=== PATIENT | female | born 1955 | race Caucasian/White ===

== ENCOUNTER → 2019-05-30 10:51 | Outpatient (CLI) | payer MEDICARE, BC, SELFPAY ==
--- NOTE | 2019-05-30 10:59 | DI.MRI.S_ITS ---
PROCEDURE: MR LUMBAR SPINE WO CON INDICATIONS: LOWER BACK PAIN TECHNIQUE: Noncontrast sagittal T1 spin echo and T2 fast echo, sagittal STIR, axial T1 and T2 fast spin echo through the lumbar spine. In cases with scoliosis, additional coronal T2 fast spin echo may be performed. COMPARISON: None. FINDINGS: Image quality: Diagnostic. Spinal Cord: Conus medullaris terminates at the L1 level. Visualized cord demonstrates normal signal and size. Paraspinous Soft Tissues: No paravertebral masses. There appears to be aortic atherosclerosis without aneurysm. Bones: The vertebral body heights throughout the imaged thoracolumbar spine are well-maintained. There is no acute compression fracture. No suspicious osseous lesions or dislocations are evident. Bony alignment is within normal limits without spondylolisthesis. There is prominent marrow edema evident involving the bilateral sacral ala with corresponding fracture lines best appreciated on the axial T1 images. Mild degenerative changes of the imaged lower thoracic levels are present without central canal or neural foraminal narrowing evident. L1-L2: No significant disc bulge is present. There is mild facet arthrosis. No central canal or neural foraminal stenosis is evident. L2-L3: There is mild disc desiccation and diffuse disc bulge with early facet arthrosis. There is no central canal or neural foraminal narrowing. L3-L4: There is mild disc height loss, diffuse disc bulge, a right paracentral annular fissure, and moderate facet arthrosis. These findings result in mild central canal stenosis without significant neural foraminal narrowing. L4-L5: There is mild disc height loss, disc desiccation, and mild diffuse disc bulge with moderate facet degenerative changes. There is no central canal stenosis or significant neuroforaminal narrowing. L5-S1: There is disc desiccation and mild diffuse disc bulge with moderate bilateral facet arthrosis. No central canal or neural foraminal narrowing is evident. IMPRESSION: 1. Bilateral sacral ala fractures as a pattern that is most compatible with sacral insufficiency fractures. Please correlate clinically. 2. No acute lumbar fractures. 3. Mild to moderate degenerative changes of the lumbar spine with mild central canal narrowing at L3-4. No neural foraminal narrowing is evident. 4. No focal disc protrusions or extrusions. 5. Small right paracentral annular fissure at L3-4. Dictated by: Jeromy Arteaga M.D. on 05/30/2019 at 11:14 Approved by: Jeromy Arteaga M.D. on 05/30/2019 at 11:23
== END ==
PROVIDERS: Visit Provider Orthopaedic Surgery
DX: M54.5 Low back pain (principal); S32.119A Unspecified Zone I fracture of sacrum, initial encounter for closed fracture; M47.816 Spondylosis without myelopathy or radiculopathy, lumbar region
CPT/HCPCS: 72148